=== PATIENT | female | born 1940 | race Caucasian/White ===

== ENCOUNTER → 2016-09-23 | Outpatient (CLI) | payer MEDICARE, BC | LOC: RAD 13:57 | DX: E03.4 Atrophy of thyroid (acquired) (principal); M24.111 Other articular cartilage disorders, right shoulder; K21.9 Gastro-esophageal reflux disease without esophagitis; M19.011 Primary osteoarthritis, right shoulder ==

== ENCOUNTER → 2016-09-28 | Outpatient (CLI) | payer MEDICARE, BC | LOC: RAD 13:24 | DX: M24.111 Other articular cartilage disorders, right shoulder (principal); E03.4 Atrophy of thyroid (acquired); K21.9 Gastro-esophageal reflux disease without esophagitis; M19.011 Primary osteoarthritis, right shoulder; S46.911A Strain of unspecified muscle, fascia and tendon at shoulder and upper arm level, right arm, initial encounter; M75.21 Bicipital tendinitis, right shoulder ==

== ENCOUNTER → 2017-07-08 | Outpatient (CLI) | payer MEDICARE, BC ==
[2017-07-08 15:41] LABS: EOS # 0.2 (0.04-0.40); EOS % 2.3 % (1.0-5.0); HEMATOCRIT 43.2 % (37.0-47.0); HEMOGLOBIN 14.1 g/dL (12.5-16.0); LYMPH# 1.9 (1.50-4.00); MEAN CELL VOLUME 88 fl (78-100); MEAN CORPUSCULAR HEMOGLOBIN 29 pg (27-31); MEAN CORPUSCULAR HGB CONC 33 g/dL (33-37); MONO # 0.7 (0.20-0.80); NEU # 5.5 (1.40-6.50); PLATELET COUNT 305 K/mm3 (130-400); RED BLOOD COUNT 4.91 M/mm3 (4.10-5.30); RED CELL DISTRIBUTION WIDTH 14.7 % (11.5-14.5); WHITE BLOOD COUNT 8.2 K/mm3 (4.8-10.8)
[2017-07-08 15:55] LABS: ALBUMIN 4.4 g/dL (3.5-5.0); BUN/CREATININE RATIO 34.9 (6.0-26.0); POTASSIUM 3.9 mmol/L (3.6-5.0); TOTAL BILIRUBIN 0.8 mg/dL (0.2-1.3); TOTAL PROTEIN 7.6 g/dL (6.3-8.2)
[2017-07-08 17:02] LABS: ERYTHROCYTE SEDIMENTATION RATE 10 mm/hr (0-30)
== END ==
LOC: LAB 15:14
PROVIDERS: Internal Medicine
DX: G60.8 Other hereditary and idiopathic neuropathies (principal); K21.9 Gastro-esophageal reflux disease without esophagitis; I73.9 Peripheral vascular disease, unspecified; E03.9 Hypothyroidism, unspecified; Z12.11 Encounter for screening for malignant neoplasm of colon

== ENCOUNTER → 2017-09-20 | Outpatient (CLI) | payer MEDICARE, BC | LOC: LAB 12:03 | DX: E55.9 Vitamin D deficiency, unspecified (principal); G60.8 Other hereditary and idiopathic neuropathies; E03.4 Atrophy of thyroid (acquired); I73.9 Peripheral vascular disease, unspecified; K21.9 Gastro-esophageal reflux disease without esophagitis ==

== ENCOUNTER → 2017-11-05 | Outpatient (CLI) | payer MEDICARE, BC | LOC: RAD 14:40 | DX: M17.12 Unilateral primary osteoarthritis, left knee (principal) ==

== ENCOUNTER → 2019-05-01 | Outpatient (CLI) | payer MEDICARE, BC ==
[2019-05-01 17:31] LABS: BASO # 0.1 (0.02-0.10); EOS # 0.2 (0.04-0.40); LYMPH# 1.9 (1.50-4.00); MEAN CELL VOLUME 89 fl (78-100); MEAN CORPUSCULAR HEMOGLOBIN 29 pg (27-31); MEAN CORPUSCULAR HGB CONC 33 g/dL (33-37); MONO # 0.6 (0.20-0.80); NEU # 5.6 (1.40-6.50); PLATELET COUNT 278 K/mm3 (130-400); RED BLOOD COUNT 4.48 M/mm3 (4.10-5.30); RED CELL DISTRIBUTION WIDTH 14.3 % (11.5-14.5); WHITE BLOOD COUNT 8.4 K/mm3 (4.8-10.8)
[2019-05-01 17:32] LABS: MEAN PLATELET VOLUME 12.1 fl (7.4-10.4)
[2019-05-01 17:35] LABS: ALBUMIN 4.1 g/dL (3.4-4.8); POTASSIUM 3.9 mmol/L (3.5-5.1)
[2019-05-01 17:36] LABS: CALCIUM 9.7 mg/dL (8.3-10.5)
[2019-05-01 17:37] LABS: TOTAL PROTEIN 7.1 g/dL (6.2-8.1)
[2019-05-01 17:39] LABS: TOTAL BILIRUBIN 0.3 mg/dL (0.2-1.2)
== END ==
LOC: LAB 16:46
PROVIDERS: Internal Medicine
DX: G60.8 Other hereditary and idiopathic neuropathies (principal); E03.9 Hypothyroidism, unspecified; I73.9 Peripheral vascular disease, unspecified; K21.9 Gastro-esophageal reflux disease without esophagitis; R26.89 Other abnormalities of gait and mobility

== ENCOUNTER → 2019-08-23 | Outpatient (CLI) | payer MEDICARE, BC | LOC: LAB 12:41 | DX: E03.9 Hypothyroidism, unspecified (principal); E55.9 Vitamin D deficiency, unspecified; K21.9 Gastro-esophageal reflux disease without esophagitis; I73.9 Peripheral vascular disease, unspecified; G60.8 Other hereditary and idiopathic neuropathies ==

== ENCOUNTER → 2020-06-21 | Outpatient (CLI) | payer MEDICARE, BC ==
[2020-06-21 12:43] LABS: URINE APPEARANCE CLEAR; URINE BILIRUBIN NEGATIVE (NEGATIVE); URINE COLOR YELLOW; URINE GLUCOSE NEGATIVE (NEGATIVE); URINE NITRATE NEGATIVE (NEGATIVE); URINE PROTEIN(semi-quant) NEGATIVE (NEGATIVE); URINE UROBILINOGEN NORMAL (NORMAL)
[2020-06-21 12:44] LABS: URINE BLOOD TRACE (NEGATIVE); URINE KETONE NEGATIVE (NEGATIVE); URINE LEUKOCYTE ESTERASE NEGATIVE (NEGATIVE); URINE MUCUS PRESENT (NOT PRESENT)
== END ==
LOC: LAB 12:23
PROVIDERS: Internal Medicine
DX: R31.9 Hematuria, unspecified (principal)

== ENCOUNTER → 2024-07-21 | Outpatient (REF) | payer MEDICARE, BC ==
[2024-07-21 11:20] LABS: URINE APPEARANCE CLEAR (CLEAR); URINE BILIRUBIN NEGATIVE (NEGATIVE); URINE BLOOD TRACE-INTACT (NEGATIVE); URINE COLOR YELLOW (YELLOW); URINE GLUCOSE NEGATIVE (NEGATIVE); URINE KETONE NEGATIVE (NEGATIVE); URINE LEUKOCYTE ESTERASE 2+ (NEGATIVE); URINE MUCUS PRESENT (NOT PRESENT); URINE NITRATE NEGATIVE (NEGATIVE); URINE PROTEIN(semi-quant) NEGATIVE (NEGATIVE)
== END ==
LOC: LAB 10:52
PROVIDERS: Family Medicine
DX: R29.90 Unspecified symptoms and signs involving the nervous system (principal)